=== PATIENT | male | born 1990 | race Caucasian/White ===

== ENCOUNTER → 2021-07-05 | Outpatient (CLI) | payer BC ==
[~2021-07-05] VITALS: Ht 180.3 cm; Wt 73.5 kg
[~2021-07-05] MED LIST: NORMAL SALINE IV ONE; SINCALIDE IV ONE
--- NOTE | 2021-07-05 08:36 | RAD ---
EXAM: Abdomen sonogram. HISTORY: Pain. TECHNIQUE: Sonographic imaging of the abdomen was performed. COMPARISON: None. FINDINGS: The liver is normal in size. No focal hepatic lesion is seen. The gallbladder is unremarkab le. The common bile duct is normal in caliber. The right kidney, pancreas and inferior vena cava are unremarkable. IMPRESSION: Unremarkable abdomen sonogram. Electronically signed by: Suzan Shelton MD (07/05/2021 8:33 AM) [id number]
--- NOTE | 2021-07-05 11:04 | RAD ---
EXAM: Nuclear hepatobiliary scan. HISTORY: Epigastric pain. Nausea and vomiting. TECHNIQUE: Following intravenous administration of 5.4 mCi Tc 99m Choletec, anterior images of the ab domen were obtained at five minute intervals through one hour. Subsequently, 1.47 mcg CCK was adminis tered and additional images to assess gallbladder ejection fraction were obtained. FINDINGS: There is prompt radiotracer uptake by the liver. No focal defect is seen. There is normal e xcretion into the biliary tree. The gallbladder is visualized within 5 minutes and there is free flow into the duodenum. The gallbladder ejection fraction is 79 percent. IMPRESSION: Normal radionuclide biliary scan. Electronically signed by: Suzan Shelton MD (07/05/2021 11:01 AM) [id number]
== END ==
LOC: US 08:31
PROVIDERS: ATTEND Internal Medicine Gastroenterology
DX: R10.13 Epigastric pain (principal)
CPT/HCPCS: 76705; 78227; A9537; J2805